=== PATIENT | female | born 1980 | race Caucasian/White ===

== ENCOUNTER 2016-08-20 10:11 | Emergency (ER) | payer SELFPAY ==
[~2016-08-20] VITALS: Ht 157.5 cm; Wt 81.8 kg
[~2016-08-20 10:11] MED LIST: MICROZIDE12.5 MG PO; MIDRIN 325 MG-11 CAP PO; NO HOME MEDICATIONS; PRILOSEC 20MG20 MG PO; REGLAN 10MG10 MG/TAB PO; ULTRAM 50MG TAB50 MG PO; ZOFRAN8 MG PO
[2016-08-20 10:14] VITALS: TEMP 97.9
[2016-08-20] MEDS ORDERED: NORA-BE0.35 MG PO (10:18)
[2016-08-20 11:13] LABS: BASO % 0.1 % (0.0-2.0); EOS # 0.1 (0.0-0.7); GRAN # 4.2 (1.4-6.5); GRAN % 59.7 % (42.2-75.2); HEMATOCRIT 43.1 % (37.0-47.0); HEMOGLOBIN 14.9 g/dl (12.5-16.0); LYMPH # 2.2 (1.2-3.4); LYMPH % 31.7 % (20.0-51.0); MEAN CELL VOLUME 85 fl (80.0-100.0); MEAN CORPUSCULAR HEMOGLOBIN 29 pg (27.0-31.0); MEAN CORPUSCULAR HGB CONC 35 g/dl (33.0-37.0); MEAN PLATELET VOLUME 9.7 fl (7.4-10.4); MONO # 0.5 (0.1-0.6); MONO % 7.1 % (1.7-9.3); PLATELET COUNT 212 K/mm3 (130-400); REDCELL DISTRIBUTION WIDTH-CV 12.3 % (11.5-14.5)
[2016-08-20 11:20] LABS: ADJUSTED CALCIUM 9.5 mg/dL (8.4-10.2); ALBUMIN 4.6 gm/dL (3.5-5.0); BILIRUBIN,TOTAL 0.7 mg/dL (0.0-1.0); CREATININE, serum 0.83 mg/dL (0.52-1.25); POTASSIUM 3.3 mmol/L (3.4-5.0)
[2016-08-20 11:32] LABS: PH 6 (5-8); SQUAMOUS EPITHELIAL 0-2 /hpf; URINE APPEARANCE Clear; URINE BACTERIA Rare /hpf; URINE BILIRUBIN Negative (NEGATIVE); URINE BLOOD 2+ (NEGATIVE); URINE COLOR Yellow; URINE GLUCOSE Negative (NEGATIVE); URINE KETONE Negative (NEGATIVE); URINE UROBILINOGEN Negative (NEGATIVE)
[2016-08-20] MEDS ORDERED: NORCO 325 MG-51 TAB PO (12:58)
[2016-08-20 13:10] VITALS: BP 142/60; PULSE 88
== END 2016-08-20 13:12 | disposition home or self-care (01) ==
LOC: COL.ER 10:11
PROVIDERS: Nurse Practitioner
DX: N20.2 Calculus of kidney with calculus of ureter (principal); I10 Essential (primary) hypertension; Z87.442 Personal history of urinary calculi; F17.210 Nicotine dependence, cigarettes, uncomplicated
CPT/HCPCS: J1170; J2270; J2405; J7030

== ENCOUNTER 2017-03-31 06:34 | Emergency (ER) | payer OTHER ==
[~2017-03-31] VITALS: Ht 157.5 cm; Wt 86.4 kg
[~2017-03-31 06:34] MED LIST changes: +NORA-BE0.35 MG PO; +NORCO 325 MG-51 TAB PO
[2017-03-31 06:45] VITALS: BP 135/92; TEMP 98.6
[2017-03-31 07:25] LABS: COLLECTION METHOD CLEAN CATCH
[2017-03-31 07:36] LABS: MUCOUS Present /lpf; PH 6 (5-8); URINE APPEARANCE Clear; URINE BACTERIA Rare /hpf; URINE BILIRUBIN Negative (NEGATIVE); URINE BLOOD 1+ (NEGATIVE); URINE COLOR Straw; URINE GLUCOSE Negative (NEGATIVE); URINE KETONE Negative (NEGATIVE); URINE LEUKOCYTE ESTERASE Negative (NEGATIVE); URINE PROTEIN(semi-quant) Negative (NEGATIVE); URINE UROBILINOGEN Negative (NEGATIVE); URINE WBC 0-2 /hpf
[2017-03-31 07:45] LABS: BASO % 0.2 % (0.0-2.0); EOS # 0.2 (0.0-0.7); EOS % 1.4 % (0-4.0); GRAN # 8.8 (1.4-6.5); GRAN % 72.3 % (42.2-75.2); HEMATOCRIT 45.3 % (37.0-47.0); HEMOGLOBIN 15.6 g/dl (12.5-16.0); LYMPH # 2.3 (1.2-3.4); LYMPH % 18.9 % (20.0-51.0); MEAN CELL VOLUME 85 fl (80.0-100.0); MEAN CORPUSCULAR HEMOGLOBIN 29 pg (27.0-31.0); MEAN CORPUSCULAR HGB CONC 34 g/dl (33.0-37.0); MEAN PLATELET VOLUME 9.8 fl (7.4-10.4); MONO # 0.8 (0.1-0.6); MONO % 6.6 % (1.7-9.3); PLATELET COUNT 193 K/mm3 (130-400); RED BLOOD COUNT 5.32 M/mm3 (4.10-5.30); WHITE BLOOD COUNT 12.2 K/mm3 (4.8-10.8)
[2017-03-31 07:46] LABS: ADJUSTED CALCIUM 9.4 mg/dL (8.4-10.2); ALBUMIN 4.3 gm/dL (3.5-5.0); BILIRUBIN,TOTAL 0.4 mg/dL (0.0-1.0); CALCIUM 9.6 mg/dL (8.4-10.2); CREATININE, serum 0.72 mg/dL (0.52-1.25); POTASSIUM 3.6 mmol/L (3.4-5.0); TOTAL PROTEIN 7.6 gm/dL (6.4-8.2)
[2017-03-31] MEDS ORDERED: NORCO 325 MG-51 TAB PO (08:43)
[2017-03-31] MEDS ORDERED: REGLAN 5MG T5 MG/TAB PO (08:43)
[2017-03-31 11:25] VITALS: PULSE 75
== END 2017-03-31 11:28 | disposition home or self-care (01) ==
LOC: COL.ER 06:34
PROVIDERS: Physician Assistant
DX: O26.91 Pregnancy related conditions, unspecified, first trimester (principal); R10.9 Unspecified abdominal pain; O16.1 Unspecified maternal hypertension, first trimester; Z87.442 Personal history of urinary calculi; Z3A.00 Weeks of gestation of pregnancy not specified
CPT/HCPCS: J1170; J2405; J7030

== ENCOUNTER 2017-05-04 20:38 | Emergency (ER) | payer OTHER, BC ==
[~2017-05-04] VITALS: Ht 157.5 cm; Wt 87.7 kg
[~2017-05-04 20:38] MED LIST changes: +REGLAN 5MG T5 MG/TAB PO
[2017-05-04 20:40] VITALS: PULSE 76; TEMP 97.8
[2017-05-04] MEDS ORDERED: PRENATAL FORMU1 EAC3 PO (20:44)
[2017-05-04 21:40] LABS: COLLECTION METHOD CLEAN CATCH
[2017-05-04 21:46] LABS: PH 7 (5-8); SQUAMOUS EPITHELIAL 0-2 /hpf; URINE APPEARANCE Clear; URINE BACTERIA None Seen /hpf; URINE BILIRUBIN Negative (NEGATIVE); URINE BLOOD 2+ (NEGATIVE); URINE COLOR Yellow; URINE GLUCOSE Negative (NEGATIVE); URINE KETONE Negative (NEGATIVE); URINE LEUKOCYTE ESTERASE Negative (NEGATIVE); URINE NITRATE Negative (NEGATIVE); URINE PROTEIN(semi-quant) Negative (NEGATIVE); URINE RBC 0-2 /hpf; URINE UROBILINOGEN Negative (NEGATIVE)
[2017-05-04 22:37] VITALS: BP 138/102
== END 2017-05-04 22:38 | disposition home or self-care (01) ==
LOC: COL.ER 20:38
PROVIDERS: Emergency Medicine
DX: O20.0 Threatened abortion (principal); O10.911 Unspecified pre-existing hypertension complicating pregnancy, first trimester; Z87.42 Personal history of other diseases of the female genital tract; Z3A.10 10 weeks gestation of pregnancy

== ENCOUNTER 2017-08-13 17:52 | Emergency (ER) | payer BC, OTHER ==
[~2017-08-13] VITALS: Ht 157.5 cm; Wt 86.8 kg
[~2017-08-13 17:52] MED LIST changes: +MACROBID 1100 MG/CAP PO; +PRENATAL FORMU1 EAC3 PO
[2017-08-13 17:54] VITALS: TEMP 98.2
[2017-08-13 18:35] LABS: BASO % 0.2 % (0.0-2.0); EOS # 0.1 (0.0-0.7); EOS % 0.5 % (0-4.0); GRAN # 7.4 (1.4-6.5); GRAN % 70.6 % (42.2-75.2); HEMATOCRIT 38.9 % (37.0-47.0); HEMOGLOBIN 14.2 g/dl (12.5-16.0); LYMPH # 2.2 (1.2-3.4); LYMPH % 20.8 % (20.0-51.0); MEAN CELL VOLUME 82 fl (80.0-100.0); MEAN CORPUSCULAR HEMOGLOBIN 30 pg (27.0-31.0); MEAN CORPUSCULAR HGB CONC 37 g/dl (33.0-37.0); MEAN PLATELET VOLUME 10.4 fl (7.4-10.4); MONO # 0.8 (0.1-0.6); MONO % 7.3 % (1.7-9.3); PLATELET COUNT 212 K/mm3 (130-400); RED BLOOD COUNT 4.76 M/mm3 (4.10-5.30); REDCELL DISTRIBUTION WIDTH-CV 12.6 % (11.5-14.5)
[2017-08-13 18:54] LABS: ALBUMIN 3.9 gm/dL (3.5-5.0); BILIRUBIN,TOTAL 0.4 mg/dL (0.0-1.0); C-REACTIVE PROTEIN 1.2 mg/dL (0.0-0.9); CALCIUM 9.7 mg/dL (8.4-10.2); CREATININE, serum 0.65 mg/dL (0.52-1.25); POTASSIUM 3.2 mmol/L (3.4-5.0)
[2017-08-13 19:32] LABS: COLLECTION METHOD CLEAN CATCH
[2017-08-13 19:44] LABS: MUCOUS Present /lpf; PH 6 (5-8); URINE APPEARANCE Hazy; URINE BACTERIA Rare /hpf; URINE BILIRUBIN Negative (NEGATIVE); URINE BLOOD 3+ (NEGATIVE); URINE COLOR Yellow; URINE GLUCOSE Negative (NEGATIVE); URINE KETONE 1+ (NEGATIVE); URINE LEUKOCYTE ESTERASE Trace (NEGATIVE); URINE NITRATE Negative (NEGATIVE); URINE PROTEIN(semi-quant) 1+ (NEGATIVE); URINE RBC >50 /hpf; URINE UROBILINOGEN Negative (NEGATIVE)
[2017-08-13] MEDS ORDERED: CEPHALEXIN500 M1 PO (20:23)
[2017-08-13 20:42] VITALS: BP 116/75; PULSE 65
== END 2017-08-13 20:55 | disposition home or self-care (01) ==
LOC: COL.ER 17:52
PROVIDERS: Emergency Medicine
DX: O23.42 Unspecified infection of urinary tract in pregnancy, second trimester (principal); O13.2 Gestational [pregnancy-induced] hypertension without significant proteinuria, second trimester; Z87.891 Personal history of nicotine dependence; Z87.442 Personal history of urinary calculi; Z3A.25 25 weeks gestation of pregnancy
CPT/HCPCS: J0696; J2270; J2550; J7030

== ENCOUNTER 2017-08-28 10:59 | Emergency (ER) | payer BC, OTHER ==
[~2017-08-28] VITALS: Ht 157.5 cm; Wt 88.2 kg
[~2017-08-28 10:59] MED LIST changes: +CEPHALEXIN500 M1 PO
[2017-08-28 11:04] VITALS: TEMP 98.3
[2017-08-28] MEDS ORDERED: NORMODYNE100 MG PO (12:02)
[2017-08-28 13:00] LABS: COLLECTION METHOD CLEAN CATCH
[2017-08-28 13:04] LABS: BASO % 0.3 % (0.0-2.0); EOS # 0.1 (0.0-0.7); EOS % 0.7 % (0-4.0); GRAN # 7.9 (1.4-6.5); GRAN % 73.7 % (42.2-75.2); HEMOGLOBIN 12.6 g/dl (12.5-16.0); LYMPH % 18.7 % (20.0-51.0); MEAN CELL VOLUME 85 fl (80.0-100.0); MEAN CORPUSCULAR HEMOGLOBIN 30 pg (27.0-31.0); MEAN CORPUSCULAR HGB CONC 35 g/dl (33.0-37.0); MEAN PLATELET VOLUME 10.8 fl (7.4-10.4); MONO # 0.6 (0.1-0.6); MONO % 5.9 % (1.7-9.3); PLATELET COUNT 195 K/mm3 (130-400); RED BLOOD COUNT 4.23 M/mm3 (4.10-5.30); REDCELL DISTRIBUTION WIDTH-CV 12.7 % (11.5-14.5)
[2017-08-28 13:06] LABS: HEMATOCRIT 35.9 % (37.0-47.0)
[2017-08-28 13:08] LABS: MUCOUS Present /lpf; PH 7 (5-8); URINE APPEARANCE Clear; URINE BACTERIA Many /hpf; URINE BILIRUBIN Negative (NEGATIVE); URINE BLOOD 1+ (NEGATIVE); URINE COLOR Yellow; URINE GLUCOSE Negative (NEGATIVE); URINE KETONE Negative (NEGATIVE); URINE LEUKOCYTE ESTERASE Negative (NEGATIVE); URINE NITRATE Negative (NEGATIVE); URINE PROTEIN(semi-quant) Negative (NEGATIVE); URINE UROBILINOGEN Negative (NEGATIVE)
[2017-08-28 13:14] LABS: ALBUMIN 3.5 gm/dL (3.5-5.0); BILIRUBIN,TOTAL 0.3 mg/dL (0.0-1.0); CALCIUM 9.6 mg/dL (8.4-10.2); CREATININE, serum 0.64 mg/dL (0.52-1.25); POTASSIUM 3.5 mmol/L (3.4-5.0); TOTAL PROTEIN 7.3 gm/dL (6.4-8.2)
[2017-08-28] MEDS ORDERED: FLOMAX 0.40.4 MG/CAP PO (13:46)
[2017-08-28 13:56] VITALS: BP 139/95; PULSE 62
== END 2017-08-28 13:57 | disposition home or self-care (01) ==
LOC: COL.ER 10:59
PROVIDERS: Physician Assistant
DX: O26.832 Pregnancy related renal disease, second trimester (principal); N20.0 Calculus of kidney; Z87.442 Personal history of urinary calculi; Z3A.27 27 weeks gestation of pregnancy
CPT/HCPCS: J1170; J2405; J7030

== ENCOUNTER → 2017-09-10 | Outpatient (CLI) | payer BC ==
[~2017-09-10] MED LIST changes: +FLOMAX 0.40.4 MG/CAP PO; +NORMODYNE100 MG PO
== END ==
LOC: COL.RAD 13:48
DX: O26.833 Pregnancy related renal disease, third trimester (principal); N20.0 Calculus of kidney; Z3A.29 29 weeks gestation of pregnancy

== ENCOUNTER 2017-09-19 16:45 | Emergency (ER) | payer BC ==
[~2017-09-19] VITALS: Ht 157.5 cm; Wt 87.3 kg
[2017-09-19 16:47] VITALS: BP 159/90; TEMP 97
[2017-09-19 17:09] LABS: COLLECTION METHOD CLEAN CATCH
[2017-09-19 17:14] LABS: BASO % 0.2 % (0.0-2.0); EOS # 0.1 (0.0-0.7); GRAN # 7.3 (1.4-6.5); GRAN % 71.2 % (42.2-75.2); HEMOGLOBIN 12.8 g/dl (12.5-16.0); LYMPH # 2.2 (1.2-3.4); MEAN CELL VOLUME 84 fl (80.0-100.0); MEAN CORPUSCULAR HEMOGLOBIN 30 pg (27.0-31.0); MEAN CORPUSCULAR HGB CONC 36 g/dl (33.0-37.0); MEAN PLATELET VOLUME 10.9 fl (7.4-10.4); MONO # 0.6 (0.1-0.6); MONO % 6.1 % (1.7-9.3); PLATELET COUNT 176 K/mm3 (130-400); REDCELL DISTRIBUTION WIDTH-CV 12.4 % (11.5-14.5)
[2017-09-19 17:19] LABS: PH 7 (5-8); SQUAMOUS EPITHELIAL 0-2 /hpf; URINE APPEARANCE Clear; URINE BACTERIA Rare /hpf; URINE BILIRUBIN Negative (NEGATIVE); URINE BLOOD 1+ (NEGATIVE); URINE COLOR Straw; URINE GLUCOSE Negative (NEGATIVE); URINE KETONE Negative (NEGATIVE); URINE LEUKOCYTE ESTERASE Negative (NEGATIVE); URINE NITRATE Negative (NEGATIVE); URINE PROTEIN(semi-quant) Negative (NEGATIVE); URINE RBC 0-2 /hpf; URINE UROBILINOGEN Negative (NEGATIVE)
[2017-09-19 17:24] LABS: ALBUMIN 3.6 gm/dL (3.5-5.0); BILIRUBIN,TOTAL 0.4 mg/dL (0.0-1.0); CREATININE, serum 0.81 mg/dL (0.52-1.25); POTASSIUM 3.7 mmol/L (3.4-5.0); TOTAL PROTEIN 7.3 gm/dL (6.4-8.2)
[2017-09-19] MEDS ORDERED: NORCO 325 MG-51 TAB PO (19:50)
[2017-09-19 20:15] VITALS: PULSE 80
== END 2017-09-19 20:17 | disposition home or self-care (01) ==
LOC: COL.ER 16:45
PROVIDERS: Emergency Medicine
DX: O99.89 Other specified diseases and conditions complicating pregnancy, childbirth and the puerperium (principal); O16.3 Unspecified maternal hypertension, third trimester; R10.9 Unspecified abdominal pain; Z87.442 Personal history of urinary calculi; Z88.2 Allergy status to sulfonamides; Z3A.30 30 weeks gestation of pregnancy
CPT/HCPCS: J1170; J2270; J2405; J7030

== ENCOUNTER 2018-11-20 19:27 | Emergency (ER) | payer OTHER ==
[~2018-11-20] VITALS: Ht 157.5 cm; Wt 86.4 kg
[2018-11-20 19:34] VITALS: BP 184/95; TEMP 97.8
[2018-11-20 21:17] VITALS: PULSE 74
== END 2018-11-20 21:10 | disposition home or self-care (01) ==
LOC: COL.ER 19:27
DX: G43.909 Migraine, unspecified, not intractable, without status migrainosus (principal); I10 Essential (primary) hypertension; Z88.2 Allergy status to sulfonamides; Z87.442 Personal history of urinary calculi
CPT/HCPCS: J1200; J1885; J2765; J7030

== ENCOUNTER 2019-06-11 12:44 | Outpatient (RCR) | payer OTHER | END 2019-09-09 | disposition home or self-care (01) | LOC: WSOH | DX: M43.16 Spondylolisthesis, lumbar region (principal); I10 Essential (primary) hypertension; K21.9 Gastro-esophageal reflux disease without esophagitis; E83.52 Hypercalcemia; E28.2 Polycystic ovarian syndrome; Z98.890 Other specified postprocedural states; Y99.0 Civilian activity done for income or pay ==

== ENCOUNTER → 2020-07-20 | Outpatient (CLI) | payer BC | LOC: COL.RAD 08:36 | DX: K76.0 Fatty (change of) liver, not elsewhere classified (principal) ==

== ENCOUNTER → 2024-02-12 | Outpatient (CLI) | payer BC ==
[~2024-02-12] MED LIST changes: +BLACK ELDERBERRY PO; +CHERRY TART PO; +FIORICET 325 MG1 TA1 PO; +HYDRODIURIL50 MG PO; +K-TAB20 PO; +LIONS MANE PO; +LUNESTA3 MG PO; +MAGNESIUM GLYCINATE PO; +NURTEC ODT75 MG PO; +PREVACID 15MG15 M1 PO; +SKULLCAP; +VITAMINC1000TA PO
[2024-02-12 10:51] LABS: INR 1.1 (0.8-3.0); PARTIAL THROMBOPLASTIN TIME 31.5 SECONDS (26.0-37.0); PROTHROMBIN TIME 12.5 SECONDS (9.7-12.8)
[2024-02-13 08:22] LABS: FACTOR V LEIDEN MUTATION B Heterozygous (Negative); PT G20210A MUTATION B Negative (Negative)
[2024-02-14 09:30] LABS: ANTI-THROMBIN III 109 % (72-128)
== END ==
LOC: COL.LAB 08:27
PROVIDERS: Internal Medicine Interventional Cardiology
DX: D68.8 Other specified coagulation defects (principal)